=== PATIENT | female | born 1990 | race Caucasian/White ===

== ENCOUNTER 2016-09-11 11:36 | Emergency (ER) | payer SELFPAY ==
--- NOTE | ~2016-09-11 | ER ---
PATIENT'S NAME: YOON ANGEL [facility] AGE: 26 Y [address] ROOM: [place] [id number] LOCATION: ED ADMIT DATE: 09/11/2016 ER/Outpatient Report DISCHARGE DATE: 09/11/2016 FAMILY PHYSICIAN: PHYSICIAN, NO ATTENDING PHYSICIAN: Hilton Calderon CHIEF COMPLAINT: Tooth pain. HISTORY OF PRESENT ILLNESS: Ms. Angel presents to the emergency department today after several weeks of tooth pain. It has been going on for at least 3 weeks and she has been having intermittent symptoms for 2 months. She follows with Family Practice. She has not seen anyone about this. She smokes 1 pack of cigarettes a day. She has no other concerns about this. She has been taking some ibuprofen to try to help this intermittently. No other issues. PAST MEDICAL HISTORY: Documented on the record and reviewed by me. SOCIAL HISTORY: Documented on the record and reviewed by me. MEDICATIONS: Documented on the record and reviewed by me. ALLERGIES: DOCUMENTED ON THE RECORD AND REVIEWED BY ME. REVIEW OF SYSTEMS: All systems were reviewed and negative except as noted in the HPI. PHYSICAL EXAMINATION: VITAL SIGNS: Blood pressure 102/61, pulse 95, respiratory rate is 14, temp 98.4, SpO2 is 97% on room air. GENERAL: Age-appropriate female. No obvious pain or distress. NEUROLOGIC: Awake and alert. GCS 15. No abnormalities. HEENT: Normocephalic, atraumatic. Eyes are PERRL. Oropharynx is notable for extremely poor dentition with multiple dental caries. The left upper teeth are the most tender. There is no fluctuation or tenderness not consistent with abscess. The exact site of tenderness is poorly localizable. She has diffuse tenderness through the zygoma and the TMJ. However, it is confined mostly to the left upper molars, all of which have dental caries. The oropharynx is otherwise clear and normal. NECK: Supple. Trachea is midline. No adenopathy. No masses. CHEST: Even PATIENT'S NAME: YOON ANGEL [facility] AGE: 26 Y [address] ROOM: [place] [id number] LOCATION: ED ADMIT DATE: 09/11/2016 ER/Outpatient Report DISCHARGE DATE: 09/11/2016 FAMILY PHYSICIAN: PHYSICIAN, NO ATTENDING PHYSICIAN: Hilton Calderon and unlabored respirations. Lungs are clear to auscultation bilaterally. EXTREMITIES: Normal to inspection. LABORATORY DATA AND X-RAYS: None. IMPRESSION: Dental caries. EMERGENCY DEPARTMENT COURSE: The patient was seen and evaluated as above. She will be given penicillin and [place] for pain management. Follow up with dentist this week. MD ORION AGRAWAL/irasema /[id number] d: 09/12/16 1114 t: 09/20/163, OUTPATIENT REPORT
[~2016-09-11 11:36] MED LIST: ADVIL200 MG PO
== END 2016-09-11 12:01 | disposition disaster alternative care site (69) ==
LOC: GMED 11:36
DX: K02.9 Dental caries, unspecified (principal); F17.210 Nicotine dependence, cigarettes, uncomplicated